=== PATIENT | male | born 1980 | race Two or more races ===

== ENCOUNTER 2017-05-30 16:14 | Emergency (ER) | payer SELFPAY ==
[~2017-05-30] VITALS: Ht 180.3 cm; Wt 74.8 kg
[2017-05-30] VITALS (7 sets, daily range): BP systolic 113–130; BP diastolic 55–83
--- NOTE | 2017-05-30 16:10 | Emergency Room Report ---
History of Present Illness General Chief Complaint: Gastrointestinal Bleed Source: Patient, EMS (Renzo Walker M.D.) Present Illness HPI Patient presents vomiting blood and dark stools. He's been drinking alcoholic constantly for 2 days. History of gastritis in the past. He complains about some epigastric pain which is 3-4/10 at this time. He states he can't keep down liquids but he's been drinking alcohol constantly. He initially only admitted to drinking for 2 days, then states he drinks every day. Patient denies chest pain, shortness of breath, cough, dysuria, rashes. He's drinking alcohol to celebrate as opposed to harm himself. He gets the shakes when he stops. He does not have a sponsor. He has had gastritis in the past. (Renzo Walker M.D.) Allergies: Coded Allergies: No Known Allergies (Unverified , 05/30/17) Patient History Past Medical History: see triage record, other - gastritis Social History: Reports: smoking, alcohol use, Denies: drug use Social History Narrative hard labor Reviewed Nursing Documentation: PMH: Agreed, PSxH: Agreed (Renzo Walker M.D.) Nursing Documentation-PMH Past Medical History: No History, Except For History Of Psychiatric Problem: Yes - etoh, bipolar (Renzo Walker M.D.) Review of Systems All Other Systems: negative except mentioned in HPI (Renzo Walker M.D.) Physical Exam Vital Signs Date Time Temp Pulse Resp B/P (MAP) Pulse Ox O2 Delivery O2 Flow Rate FiO2 05/30/17 16:00 98.7 108 20 120/74 98 Room Air 98.8 Sp02 EP Interpretation: reviewed, normal General Appearance: no apparent distress, GCS 15, other - Alcohol on his breath , slightly dishevelled Head: normocephalic Eyes: bilateral eye PERRL, bilateral eye Scleral Injection ENT: moist mucus membranes, other - brown material (presumed vomited) from shoe tested + for blood Neck: supple Respiratory: lungs clear, normal breath sounds Cardiovascular #1: regular rate, rhythm Cardiovascular #2: 2+ radial (R) Gastrointestinal: normal inspection, no mass, non-distended, no guarding, no rebound, tenderness - minimal epigastric, decreased bowel sounds Musculoskeletal: back normal, normal range of motion Neurologic: alert, oriented x3, nystagmus Psychiatric: no suicidal/homicidal ideation, other - Slurred speech Skin: normal inspection, warm/dry (Renzo Walker M.D.) Medical Decision Making Diagnostic Impression: Primary Impression: Alcoholic gastritis with bleeding Qualified Codes: K29.21 - Alcoholic gastritis with bleeding Additional Impression: Alcohol intoxication Qualified Codes: F10.920 - Alcohol use, unspecified with intoxication, uncomplicated ER Course Patient presents vomiting blood and dark stools with alcohol consumption. Differential includes gastritis, peptic ulcer disease, Reyna-Gandhi tear amongst others. The patient is intoxicated this time however is following commands. Evaluation will be with EKG, chest x-ray and labs. The patient will. Treated with IV hydration, Pepcid and Zofran. Based on exam, no abdominal imaging indicated. Will be observed and consideration for repeat labs and further treatment will be based on clinical course. Patient may be at risk for withdrawal. Patient not vomiting. Improving. Complaints of "anxiety and shakes". BA very high - benadryl given with good results (patient sleeping without shakes or anxiety). Thiamine given. Patient no longer tachycardic. Labs with normal WBC and H/H. Elevated LFTs. Patient evaluated and given ativan by Dr. Blackmon. Discharged by Dr. Blackmon. Laboratory Tests Test 05/30/17 16:30 White Blood Count 5.4 K/UL (4.8-10.8) Red Blood Count 5.04 M/UL (4.70-6.10) Hemoglobin 14.9 G/DL (14.2-18.0) Hematocrit 43.3 % (42.0-52.0) Mean Corpuscular Volume 86 FL (80-99) Mean Corpuscular Hemoglobin 29.5 PG (27.0-31.0) Mean Corpuscular Hemoglobin Concent 34.4 G/DL (32.0-36.0) Red Cell Distribution Width 13.6 % (11.6-14.8) Platelet Count 198 K/UL (150-450) Mean Platelet Volume 6.9 FL (6.5-10.1) Neutrophils (%) (Auto) 50.6 % (45.0-75.0) Lymphocytes (%) (Auto) 44.6 % (20.0-45.0) Monocytes (%) (Auto) 3.8 % (1.0-10.0) Eosinophils (%) (Auto) 0.1 % (0.0-3.0) Basophils (%) (Auto) 0.9 % (0.0-2.0) Prothrombin Time 11.2 SEC (9.30-11.50) Prothrombin Time INR 1.1 (0.9-1.1) PTT 30 SEC (23-33) Urine Color Arleen Urine Appearance Slightly cloudy Urine pH 5 (4.5-8.0) Urine Specific [place] 1.025 (1.005-1.035) Urine Protein 2+ (NEGATIVE) H Urine Glucose (UA) Negative (NEGATIVE) Urine Ketones 3+ (NEGATIVE) H Urine Occult Blood 1+ (NEGATIVE) H Urine Nitrite Negative (NEGATIVE) Urine Bilirubin Negative (NEGATIVE) Urine Ictotest Negative Urine Urobilinogen 1 MG/DL (0.0-1.0) H Urine Leukocyte Esterase 1+ (NEGATIVE) H Urine RBC 2-4 /HPF (0 - 0) H Urine WBC 5-10 /HPF (0 - 0) H Urine Squamous Epithelial Cells Occasional /LPF Urine Bacteria Few /HPF (NONE) Urine Mucus Moderate /LPF (NONE/OCC) H Sodium Level 134 MMOL/L (136-145) L Potassium Level 4.6 MMOL/L (3.5-5.1) Chloride Level 95 MMOL/L (98-107) L Carbon Dioxide Level 24 MMOL/L (21-32) Anion Gap 15 mmol/L (5-15) Blood Urea Nitrogen 30 mg/dL (7-18) H Creatinine 0.8 MG/DL (0.55-1.30) Estimate Glomerular Filtration Rate > 60 mL/min (>60) Glucose Level 110 MG/DL (74-106) H Calcium Level 8.0 MG/DL (8.5-10.1) L Total Bilirubin 0.6 MG/DL (0.2-1.0) Aspartate Amino Transferase (AST) 108 U/L (15-37) H Alanine Aminotransferase (ALT) 108 U/L (12-78) H Alkaline Phosphatase 117 U/L (46-116) H Total Creatine Kinase 278 U/L (26-308) Total Protein 8.2 G/DL (6.4-8.2) Albumin 4.1 G/DL (3.4-5.0) Globulin 4.1 g/dL Albumin/Globulin Ratio 1.0 (1.0-2.7) Lipase 204 U/L (73-393) Salicylates Level 1.0 ug/mL (2.8-20) L Urine Opiates Screen Negative (NEGATIVE) Acetaminophen Level < 2 MCG/ML (10-30) L Urine Barbiturates Screen Negative (NEGATIVE) Phencyclidine (PCP) Screen Negative (NEGATIVE) Urine Amphetamines Screen Negative (NEGATIVE) Urine Benzodiazepines Screen Negative (NEGATIVE) Urine Cocaine Screen Negative (NEGATIVE) Urine Marijuana (THC) Screen Negative (NEGATIVE) Serum Alcohol 462 mg/dL (Renzo Walker M.D.) ER Course This patient is alcoholic who presents with alcohol intoxication and bleeding. Hemoglobin stable. He was signed out to me for disposition. Initially his blood alcohol was very high. Now is fully awake and complaining of withdrawal symptoms and has some shakiness. I order Librium and Ativan. He felt better after that. Tremors resolved. We'll discharge home with prescription for Librium. No criteria for 5150. He's not suicidal or homicidal. he is ambulating without any problem. No ataxia. no slurred speech. (ERWIN BLACKMON M.D.) Rhythm Strip Diag. Results Rhythm: NSR, no PVC's, no ectopy (Renzo Walker M.D.) Chest X-Ray Diagnostic Results Chest X-Ray Diagnostic Results : Chest X-Ray Ordered: Yes # of Views/Limited/Complete: 1 View Indication: Other EP Interpretation: Yes Interpretation: no consolidation, no effusion, no pneumothorax, no acute cardiopulmonary disease Impression: No acute disease Electronically Signed by: Electronically signed by Renzo Walker MD (Renzo Walker M.D.) Last Vital Signs Date Time Temp Pulse Resp B/P (MAP) Pulse Ox O2 Delivery O2 Flow Rate FiO2 05/30/17 23:50 98.1 98 16 128/73 98 Room Air 98.1 Status: improved (Renzo Walker M.D.) Status: improved (ERWIN BLACKMON M.D.) Disposition: HOME, SELF-CARE Condition: Stable Scripts Omeprazole Magnesium (PRILOSEC OTC) 20 Mg Tablet. 20 MG ORAL DAILY, #30 TAB Prov: ERWIN BLACKMON M.D. 05/30/17 Chlordiazepoxide (Chlordiazepoxide HCl) 25 Mg Capsule 25 MG ORAL THREE TIMES A DAY, #21 CAP 0 Refills Prov: ERWIN BLACKMON M.D. 05/30/17 Additional Instructions: Follow-up with your DrGiovanna in 7 days. Go to rehabilitation. Return if worse. Renzo Walker M.D. May 30, 2017 16:10 ERWIN BLACKMON M.D. May 30, 2017 23:53
[2017-05-30 16:56] LABS: BASOPHILS % (AUTO) 0.9 % (0.0-2.0); EOSINOPHILS % (AUTO) 0.1 % (0.0-3.0); HEMATOCRIT 43.3 % (42.0-52.0); HEMOGLOBIN 14.9 G/DL (14.2-18.0); LYMPHOCYTES % (AUTO) 44.6 % (20.0-45.0); MEAN CORPUSCULAR VOLUME 86 FL (80-99); MONOCYTES % (AUTO) 3.8 % (1.0-10.0); NEUTROPHILS % (AUTO) 50.6 % (45.0-75.0); PLATELET COUNT 198 K/UL (150-450); RED BLOOD COUNT 5.04 M/UL (4.70-6.10); RED CELL DISTRIBUTION WIDTH 13.6 % (11.6-14.8); WHITE BLOOD COUNT 5.4 K/UL (4.8-10.8)
[2017-05-30 17:14] LABS: ANION GAP 15 mmol/L (5-15); BLOOD UREA NITROGEN 30 mg/dL (7-18); CARBON DIOXIDE 24 MMOL/L (21-32); CHLORIDE 95 MMOL/L (98-107); CREATININE 0.8 MG/DL (0.55-1.30); POTASSIUM 4.6 MMOL/L (3.5-5.1); SODIUM 134 MMOL/L (136-145)
[2017-05-30 17:20] LABS: ALANINE AMINOTRANSFERASE 108 U/L (12-78); ALBUMIN 4.1 G/DL (3.4-5.0); ALKALINE PHOSPHATASE 117 U/L (46-116); ASPARTATE AMINO TRANSFERASE 108 U/L (15-37); BILIRUBIN,TOTAL 0.6 MG/DL (0.2-1.0); CREATINE KINASE 278 U/L (26-308)
[2017-05-30 17:33] LABS: APPEARANCE,URINE SLIGHTLY CLOUDY; BILIRUBIN, URINE NEGATIVE (NEGATIVE); COLOR,URINE AMBER; GLUCOSE, URINE (UA) NEGATIVE (NEGATIVE); KETONES,URINE 3+ (NEGATIVE); LEUKOCYTE ESTERASE ,URINE 1+ (NEGATIVE); NITRITE,URINE NEGATIVE (NEGATIVE); PH,URINE 5 (4.5-8.0); PROTEIN,URINE 2+ (NEGATIVE); UROBILINOGEN,URINE 1 MG/DL (0.0-1.0)
[2017-05-30 17:44] LABS: INR 1.1 (0.9-1.1)
[2017-05-30] MEDS ORDERED: Thiamine HCl 100 MG in D5W 55 ML IVPB SCH (19:45)
[2017-05-30] MEDS ORDERED: DiphenhydrAMINE 50mg/ml Inj IVP ONE (19:45)
[2017-05-30] MEDS ORDERED: Thiamine HCl 100mg/ml 2 ml Inj ONE (19:56)
[2017-05-30] MEDS ORDERED: LORazepam Inj 2mg/ml 1ml IV ONE (23:15)
[2017-05-30] MEDS ORDERED: chlordiazePOXIDE 25mg Cap ORAL ONE (23:15)
[2017-05-30] MEDS ORDERED: LIBRIUM25 MG ORAL (23:52)
[2017-05-30] MEDS ORDERED: PRILOSEC OTC20 MG ORAL (23:53)
--- NOTE | 2017-05-31 09:20 | Diagnostic Imaging Report ---
Indication: Vomiting Technique: One view of the chest Comparison: none Findings: Lungs and pleural spaces are clear. Heart size is normal Impression: No acute process This agrees with the preliminary interpretation provided by the emergency room physician
== END 2017-05-30 23:55 | disposition home or self-care (01) ==
LOC: EDBD 16:14 → EMR 16:24
DX: K29.21 Alcoholic gastritis with bleeding (principal); F10.920 Alcohol use, unspecified with intoxication, uncomplicated
CPT/HCPCS: 36415; 71045; 80053; 80307; 81003; 82550; 83690; 85025; 85610; 85730; 86850; 86900; 86901; 96361; 96374; 96375; 99284; G0480; J1200; J2405; S0028; 80329